=== PATIENT | female | born 1990 | race Asian ===

== ENCOUNTER 2025-09-11 03:43 | Inpatient (IN) | payer BC ==
[2025-09-11 03:57] VITALS: BMI 24.1
[2025-09-11] MEDS ORDERED: hydrALAZINE 20 MG/ML VIAL SLOW IVP PRN ×2 (04:16→06:45)
[2025-09-11] MEDS: Ondansetron PF 4 MG/2 ML Vial IVP SCH (05:11)
[2025-09-11] MEDS ORDERED: Ondansetron PF 4 MG/2 ML Vial IVP PRN ×2 (06:27→06:45)
[2025-09-11] MEDS ORDERED: Acetaminophen 325 MG TAB PO PRN (06:27)
[2025-09-11] MEDS ORDERED: diphenhydrAMINE 50 MG/ML VIAL IVP PRN (06:27)
[2025-09-11] MEDS ORDERED: HYDROcodone/Acetaminophen 5/325 mg Tablet PO PRN ×2 (06:30)
[2025-09-11] MEDS ORDERED: Lidocaine 1% (PF) 30 ML VIAL SC PRN (06:30)
[2025-09-11] MEDS ORDERED: Communication Order-Pharmacy FS SCH (06:30)
[2025-09-11] MEDS ORDERED: Oxytocin 30 units/NS 500 ML 500 ML IV SCH ×2 (06:30→06:45)
[2025-09-11 06:32] LABS: Hematocrit 36.6 % (34.9-44.5); Hemoglobin 12.3 g/dL (12.0-15.5); Mean Corpuscular Hemoglobin 30.1 pg (27.0-33.0); Mean Corpuscular Volume 89.7 fL (81.6-98.3); Platelet Count 222 10x3/uL (150-450); Red Blood Cell (RBC) Count 4.08 10x6/uL (3.90-5.03); White Blood Cell (WBC) Count 13.94 10x3/uL (3.5-10.5)
[2025-09-11] MEDS ORDERED: Diphenoxylate HCl/Atropine Tablet PO PRN ×2 (06:45)
[2025-09-11] MEDS ORDERED: Carboprost 250 MCG/ML AMP IM PRN (06:45)
[2025-09-11] MEDS ORDERED: Acetaminophen 500 MG TAB PO PRN (06:45)
[2025-09-11] MEDS ORDERED: Methylergonovine 0.2 MG/ML VIAL IM PRN (06:45)
[2025-09-11] MEDS ORDERED: Tranexamic Acid 1,000 MG/10 ML VIAL IVP PRN (06:45)
[2025-09-11] MEDS: fentaNYL/Ropivacaine Epidural 100 ML ONE (06:46)
[2025-09-11 07:01] LABS: Hep B Surf Ag - L&D Non-Reactive S/CO (NonReactive)
[2025-09-11 07:02] LABS: Syphilis Antibody Index 0.19 S/CO (<1.00 Non-Reactive)
[2025-09-11] MEDS: Oxytocin 30 units/NS 500 ML 500 ML IV SCH (16:46)
[2025-09-11] MEDS: fentaNYL 2 mcg/Ropivacaine 0.2% Epidural 100 ML CADD EPIDURAL SCH (18:44)
[2025-09-11] MEDS: Ibuprofen 800 MG TAB PO PRN (20:58)
[2025-09-12] MEDS: Clindamycin/D5W 900 MG in Premix 1 BAG IVPB SCH (02:24)
[2025-09-12] MEDS: Gentamicin 320 MG, Admixture Fee 1 EACH in Sodium Chloride 0.9% 100 ML IVPB SCH (03:06)
[2025-09-12] MEDS ORDERED: Preparation H Ointment 28 GM TUBE PR PRN (04:43)
[2025-09-12] MEDS ORDERED: Bisacodyl 10 MG SUPP PR PRN (04:43)
[2025-09-12] MEDS ORDERED: Milk Of Magnesia 30 ML UDCUP PO PRN (04:43)
[2025-09-12] MEDS ORDERED: Methylergonovine 0.2 MG/ML VIAL IM PRN (04:43)
[2025-09-12] MEDS ORDERED: hydrALAZINE 20 MG/ML VIAL SLOW IVP PRN (04:43)
[2025-09-12] MEDS ORDERED: Lanolin Ointment 7 GM TUBE TOP PRN (04:43)
[2025-09-12] MEDS ORDERED: Oxytocin 30 units/NS 500 ML 500 ML IV SCH (04:45)
[2025-09-12] MEDS: Ibuprofen 800 MG TAB PO SCH (05:27)
[2025-09-12] MEDS: Benzocaine-Menthol 82.5 ML CAN TOP PRN (05:29)
[2025-09-12] MEDS: Boostrix 0.5 ML (Tdap) VIAL (>/=7 yrs of age) IM ONE (07:16)
[2025-09-12] MEDS: Ferrous Sulfate 325 MG TAB PO SCH (07:16)
[2025-09-12] MEDS: Witch Hazel 100 PAD JAR TOP PRN (15:02)
[2025-09-13 08:41] VITALS: BP 101/60; TEMP 98
== END 2025-09-13 18:00 | disposition home or self-care (01) | DRG 807 ==
LOC: CSHLD/OP 03:43 → CSHLD 06:16 → CSHPP 23:35
PROVIDERS: ADMIT Obstetrics & Gynecology; ATTEND Obstetrics & Gynecology
PROC: 10E0XZZ Delivery of Products of Conception, External Approach (ICD-10-PCS; principal; 2025-09-11)
PROC: 0KQM0ZZ Repair Perineum Muscle, Open Approach (ICD-10-PCS; 2025-09-11)
DX: O70.1 Second degree perineal laceration during delivery (principal); Z37.0 Single live birth; Z3A.38 38 weeks gestation of pregnancy; O9A.23 Injury, poisoning and certain other consequences of external causes complicating the puerperium; R50.2 Drug induced fever; T47.1X5A Adverse effect of other antacids and anti-gastric-secretion drugs, initial encounter
CPT/HCPCS: 36415; 51702; 85027; 86780; 86850; 86900; 86901; 87340; 99285; J1580; J2405; J2590; J3490